=== PATIENT | male | born 1990 | race Two or more races ===

== ENCOUNTER 2019-05-30 18:01 | Emergency (ER) | payer SELFPAY ==
[~2019-05-30] VITALS: Ht 185.4 cm; Wt 72.6 kg
--- NOTE | 2019-05-30 18:07 | NUR ---
CAME IN FOR DIZZINESS X 1 WEEK; NON-COMPLIANCE WITH DM MEDS, AND FEELS HIS BP IS "LOW". TO ER BED 3, HOOKED TO MONITOR, PROVIDED W WARM BLANKET, PT AOX4 , NOT IN DISTRESS, AWAITING MD RENAE
--- NOTE | 2019-05-30 18:15 | NUR ---
DR PORTER AT BEDSIDE FOR EVAL.
[2019-05-30 18:25] LABS: BASOPHILS % (AUTO) 0.6 % (0.0-2.0); EOSINOPHILS % (AUTO) 1.8 % (0.0-6.0); HEMATOCRIT 41 % (39-51); HEMOGLOBIN 13.4 g/dL (13.5-17.5); LYMPHOCYTES # (AUTO) 2.5 /CMM (0.8-4.8); LYMPHOCYTES % (AUTO) 34.5 % (20.0-44.0); MEAN CORPUSCULAR HGB CONC 33 g/dl (31.0-36.0); MEAN CORPUSCULAR VOLUME 93 fL (80-96); MONOCYTES # (AUTO) 0.6 /CMM (0.1-1.30); MONOCYTES % (AUTO) 7.5 % (2.0-12.0); NEUTROPHILS # (AUTO) 4.1 /CMM (1.8-8.9); NEUTROPHILS % (AUTO) 55.6 % (43.0-81.0); PLATELET COUNT (AUTO) 304 /CMM (150-450); RED BLOOD CELL COUNT(AUTO) 4.43 MIL/uL (4.5-6.0); WHITE BLOOD COUNT (AUTO) 7.4 K/uL (4.3-11.0)
[2019-05-30] MEDS ORDERED: IV NS 0.9% 1,000 ML BAG IV ONE ×2 (18:30→19:00)
[2019-05-30 18:40] LABS: ALANINE AMINOTRANSFERASE 25 U/L (12-78); ALBUMIN 3.3 g/dL (3.4-5.0); ALKALINE PHOSPHATASE 178 U/L (46-116); ASPARTATE AMINOTRANSFERASE 11 U/L (15-37); BILIRUBIN,TOTAL 0.2 mg/dL (0.2-1.0); CALCIUM, SERUM 9.1 mg/dL (8.5-10.1); CARBON DIOXIDE 28 mmol/L (21-32); CHLORIDE 97 mmol/L (98-107); CREATININE 1.3 mg/dL (0.6-1.3); POTASSIUM 4.8 mmol/L (3.5-5.1); SODIUM SERUM 134 mmol/L (136-145); TOTAL PROTEIN, SERUM 7.8 g/dL (6.4-8.2); UREA NITROGEN, BLOOD 23 mg/dL (7-18)
[2019-05-30 18:45] LABS: GLUCOSE 607 mg/dL (74-106)
[2019-05-30] MEDS ORDERED: INSULIN REGULAR, HUMAN 100 UNIT/ML 10 ML VIAL ONE (18:57)
[2019-05-30] MEDS ORDERED: INSULIN REGULAR, HUMAN 100 UNIT/ML 10 ML VIAL SQ ONE (19:00)
--- NOTE | 2019-05-30 19:12 | NUR ---
REPORT GIVEN TO ENZO ROSEN FOR AMANDA
--- NOTE | 2019-05-30 20:00 | NUR ---
BG 390. AWARE.
[2019-05-30 20:02] VITALS: BP 124/78
--- NOTE | 2019-05-30 20:10 | NUR ---
IV removed. Catheter intact and site benign. Pressure and 4x4 applied to site. No bleeding noted.Patient discharged to home in stable condition. Written and verbal after care instructions given. Patient verbalizes understanding of instruction. PT AMBUALTORY WITH STEADY GAIT.
== END 2019-05-30 20:12 | disposition home or self-care (01) ==
LOC: ER 18:05
DX: E11.65 Type 2 diabetes mellitus with hyperglycemia (principal); R42 Dizziness and giddiness; F12.90 Cannabis use, unspecified, uncomplicated
CPT/HCPCS: 36415; 71045; 80048; 80076; 82962; 84443; 84484; 85025; 93005; 96360; 96361; 96372; 99284; J1815; J7030 ×2